=== PATIENT | female | born 1985 | race Caucasian/White ===

== ENCOUNTER 2024-05-19 10:24 | Outpatient (CLI) | payer OTHER, SELFPAY ==
[2024-05-21 06:42] LABS: HPV Source Cervical; HPV, High Risk by TMA Not Detected
== END 2024-05-19 10:25 | disposition home or self-care (01) ==
PROVIDERS: Visit Provider Physician Assistant
DX: Z01.419 Encounter for gynecological examination (general) (routine) without abnormal findings (principal); Z12.4 Encounter for screening for malignant neoplasm of cervix; Z13.6 Encounter for screening for cardiovascular disorders; Z13.1 Encounter for screening for diabetes mellitus; Z11.51 Encounter for screening for human papillomavirus (HPV)
CPT/HCPCS: 80061; 87624; 87625; 88141; 88142

== ENCOUNTER 2025-03-22 06:03 | Outpatient (CLI) | payer OTHER, SELFPAY ==
[2025-03-22] VITALS (16 sets, daily range): BP systolic 118–135; BP diastolic 58–71; PULSE 75–95; RESP 16–18; TEMP 36.9–37.1; O2SAT 98–100
--- NOTE | 2025-03-22 06:22 | CRLHL7_ITS ---
For Patients: As a result of the Century Cures Act, medical imaging exams and procedure reports are released immediately into your electronic medical record. You may view this report before your referring provider. If you have questions, please contact your health care provider. INDICATION: Bleeding and cramping TECHNIQUE: Limited transabdominal OB ultrasound to evaluate for placental abruption. Grayscale images of the placenta were obtained. Limited views of the fetus to evaluate for heart rate and positioning. COMPARISON: Outside images not available for comparison. FINDINGS: heart rate: 131 beats per minute position: Cephalic. Placenta: Posterior without evidence of abruption. Cervix was not evaluated to evaluate for placental edge to cervix distance. Amniotic fluid: Single deepest pocket measuring 4.5 centimeters. IMPRESSION: Sanchez intrauterine in cephalic presentation. Cardiac activity is present. Posterior placenta without evidence of abruption. Normal amniotic fluid. Dictated by Magalis Garcia MD @ 03/22/2025 7:12:04 AM (Electronically Signed)
[2025-03-22 06:37] LABS: Hematocrit 36.8 % (33.0-51.0); Hemoglobin* 12.4 gm/dL (12.0-16.0); Immature Granulocytes Abs Auto 0.06 K/uL (0.00-0.30); Immature Granulocytes Pct Auto 0.7 %; Lymphocytes Absolute Auto 1.50 K/uL (0.90-2.90); Mean Corpuscular HGB Conc 34 gm/dL (32-36); Mean Corpuscular Hemoglobin 35 pg (26-34); Mean Corpuscular Volume 103 fL (80-100); RDW Coefficient of Variation % 12.7 % (11.5-15.5); Red Blood Count 3.58 m/uL (4.00-5.20); Slide Review Reflex No; White Blood Count* 8.03 K/uL (4.50-11.00)
--- NOTE | 2025-03-22 06:41 | P.OBLDTN_ITS ---
OB - Triage/Final Diagnosis Visit Information Time Seen by Provider: 06:30 Date Seen: 03/22/25 Date of evaluation: 03/22/25 Narrative: The patient is a 39 year old 1 para 0 at 29 0/7 weeks gestation by transfer date, who presents with acute vaginal bleeding. KARIS 06/07/25. Awoke this morning with bright red bleeding from the vagina, filled the toilet bowl when she went to the bathroom. Now is feeling some mild low abdominal cramping. She denies recent trauma, recent sexual intercourse, signs symptoms vaginal or urinary tract infection, or any prior bleeding during this . She has been seeing a mid teacher for care, and had just recently passed her diabetes screen and had a normal hemoglobin level of 13.1. Her risk factors include advanced maternal age and IVF . She reportedly had a normal mid trimester ultrasound with a posterior placenta, without evidence of previa. The patient's blood type is reportedly O-positive. Labs were ordered: CBC, fibrinogen. Formal ultrasound ordered to assess amniotic fluid volume, position, and placenta for position and any evidence of abruption. The patient was signed out to Dr. Field for further evaluation at change of shift. Evaluation Cervical dilation (cm): 0 Laboratory results: Laboratory Tests 03/22/25 Range/Units 06:30 WBC 8.03 (4.50-11.00) K/uL RBC 3.58 L (4.00-5.20) m/uL Hgb 12.4 (12.0-16.0) gm/dL Hct 36.8 (33.0-51.0) % MCV 103 H (80-100) fL MCH 35 H (26-34) pg MCHC 34 (32-36) gm/dL RDW Coeff of Kenneth 12.7 (11.5-15.5) % Plt Count 218 (140-440) K/uL Neut % (Auto) 71.9 (42.0-72.0) % Lymph % (Auto) 19.2 L (20-44) % [place] % (Auto) 7.1 (0.0-11.0) % Eos % (Auto) 1.0 (0.0-7.0) % Baso % (Auto) 0.1 (0.0-3.0) % Neut # (Auto) 5.77 (1.7-7.0) K/uL Lymph # (Auto) 1.50 (0.90-2.90) K/uL [place] # (Auto) 0.60 (0.00-0.90) K/UL Eos # (Auto) 0.08 (0.00-0.50) K/uL Baso # (Auto) 0.01 (0.00-0.30) K/uL Abs Immat Gran (auto) 0.06 (0.00-0.30) K/uL Imm/Tot Granulo (auto) 0.7 % Fibrinogen Pending Vital signs: Vital Signs - 24 hr 03/22/25 06:08 03/22/25 06:13 03/22/25 06:18 Pulse Oximetry 100 99 99 03/22/25 06:23 03/22/25 06:28 Pulse Oximetry 98 98 Comments: General appearance: Alert, cooperative white female in no acute distress, but very anxious. Abdomen: Soft, gravid, nontender. Fundal height consistent with dates. Fetus is in a vertex presentation by Abdulaziz's. : Sterile speculum exam was performed. There was about a tsp of thick bright red blood in the vaginal vault. The speculum was removed an emptied and then reinserted into the vagina. The cervix appeared to be long and closed visually, and there was no active hemorrhage from the cervical os. No evidence of cervical or vaginal polyps. A digital cervical exam was performed which revealed the cervix was long and closed. Fetus (Single) Heart Rate Baseline: 145 Retirement Variability: Moderate (6-25) Monitor Accelerations: Present (10x10) Monitor Decelerations: None Final Diagnosis (1) Vaginal bleeding in : Status: Acute Problem details: 29 weeks Total Time Spent Total Time Spent: 45 minutes
[2025-03-22 07:55] LABS: Appearance Urine Clear (Clear)
[2025-03-22 11:07] LABS: Amnisure Rom* POSITIVE
[2025-03-22 12:02] LABS: Bacterial Vaginosis* Negative (Negative); Candida glab/krus NOT DETECTED (No Detected)
[2025-03-22] MEDS: LACTATED RINGERS 1000 ML 1,000 ML 500 ML IV (15:45)
--- NOTE | 2025-03-22 19:02 | W.PM.OBO ---
OB Outpatient HPI History of Present Illness Date Seen: 03/22/25 History of Present Illness: 39 year old at 29 0/7 weeks gestation by IVF transfer date, KARIS 06/07/25 , presents with vaginal bleeding. Patient was seen this am by my partner Dr. Nuñez please refer to this note for additional details. In summary patient woke up this morning and went to urinate and noticed blood in the basin, described as light pink and more bright red after wiping. Called in and decided to come in for evaluation. Dr. Nuñez completed a speculum exam this morning after confirming with patient that her placenta was posterior and saw a small amount of blood in the posterior fornix, no pooling, no active bleeding. Digital check completed and cervix was found closed and thick. She had ordered an OB US and amniotic fluid was noted to be normal, placenta was described as normal as well. Labs collected to evaluated fibrinogen and hemoglobin/platelets. Upon re evaluation by me this morning, NST and patient complaining of more frequent tightening and after discussion I recommended continued observation to rule out another episode of bleeding, watery discharge etc... I completed a repeat speculum exam at around 10:30am today cervix found very friable, no bleeding noted from internal cervical os, moderate amount of yellowish, naranjo vaginal discharge mixed with bloody discharge. AmniSure collected and found positive, fern test collected as well found negative, vaginitis panel negative. Patient denies history of abnormal vaginal discharge, significant pelvic pain or frequent contractions, no dysuria, urgency, no constipation no diarrhea, no fever, no chills. Baby moving naturally: Yes Bleeding: Yes Contractions: Yes Leaking fluid: No Discharge: No Heartburn: No Back pain: No Other comments: care review of records: care in [facility] by Executive Manager Austin Mercer- previously planning a home . Evidence of 5 care appointment so far this . She has been utilizing a low does aspirin due to AMA for prevention of hypertension if disorders of , she had been utilizing vaginal progesterone 200 mg nightly until about 2 weeks prior to current visit, utilizing Levothyroxine 150mcg due to history of hypothyroidism. care visits blood pressures 12, 16, 21, 27 weeks respectively: 137/78, 127/83, 131/76, 118/79. During IVF process patient has documented blood pressures in the 140s systolics. 10/14/2024: Ultrasound crown to rump length consistent with 6 weeks 2 days, heart rate 118 beats per minute. KARIS: 06/07/2025. Small subchorionic hemorrhage measuring 7 x 7 mm. Left adnexal simple cyst measuring 15 mm. 10/28/2024: Completed due to first trimester bleeding: Single living intrauterine at 8 weeks 3 days, cardiac activity is detected at a rate of 171 beats per minute. Tiny subchorionic hematoma measures 8 x 4 x 3 mm. 01/24/2025: Anatomy ultrasound: Single fetus is present in cephalic position, there is good movement, with cardiac activity identified at 144 beats per minute. The placenta is implanted, with no evidence of placenta previa or abruption at this time. There is a normal amount of amniotic fluid present. Cervical length 45 mm and closed. BPD: Consistent with 21 weeks and 3 days, HC: 21 weeks 3 days, abdominal circumference: 22 weeks 6 days, femur length consistent with 20 weeks and 3 days. No abnormalities are identified. 11/07/2024: TSH: 0.39, low 11/29/2024: Hemoglobin: 13.6, platelets [id number]. Blood type and group O positive, RPR nonreactive, hepatitis-B surface antigen nonreactive, rubella immune, TSH: 0.09 (L), free T4: 4.0 (H), total T4: 16.8 (H). CMP: BUN: 8, creatinine: 0.86, AST: 14, ALT: 22. Hemoglobin A1c: 5.1. Vitamin-D: 27 low. 01/27/2025: TSH: 0.74 within normal range. 02/28/2025: Hemoglobin 12.3, platelets [id number], TSH: 1.98 WNL. 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) Hemorrhoids ?K64.9 - Unspecified hemorrhoids (ICD-10) Surgical History History of thyroidectomy, subtotal ?E89.0 - Postprocedural hypothyroidism (ICD-10) History of right ankle joint replacement (2003) ?Z96.661 - Presence of right artificial ankle joint (ICD-10) History of appendectomy (2001) ?Z90.49 - Acquired absence of other specified parts of digestive tract (ICD-10) Family History Paternal Grandmother Thyroid disease Diabetes Heart disease Leukemia Maternal Grandfather Heart disease Lung cancer COPD (chronic obstructive pulmonary disease) Maternal Grandmother Heart disease Skin cancer Social History Narrative: RN Nonsmoker Occasional alcohol use What is your current living situation?: I presently have a place to live Problems where you live: no known problems In the past 12 months, utilities in danger of being shut off: no In past 12 months, lack of transportation kept you from medical appts, meetings, work, or getting things needed for daily living: no In the past 12 mos, have been you worried that your food would run out before you had money to buy more?: never true In the past 12 mos, the food you bought just didn't last and you didn't have money to buy more?: never true Smoking Status: Never smoker How often does anyone, including family, friends and others, physically hurt you: never How often does anyone, including family, friends and others, insult or talk down to you: never How often does anyone, including family, friends and others, threaten you with harm: never How often does anyone, including family, friends and others, scream or curse at you: never History History 1 Elective abortions Para 0 Spontaneous abortions Hx # Term Pregnancies Ectopic pregnancies Hx # Pregnancies Multiple births Number of Living Children 0 OB - H&P: Exam Physical Exam Vital signs: Temp Pulse Resp BP Pulse Ox 98.7 F 78 16 119/58 L 100 03/22/25 16:33 03/22/25 16:34 03/22/25 16:33 03/22/25 16:34 03/22/25 13:17 Narrative: Sterile speculum exam completed at around 10:30am:cervix found very friable, no bleeding noted from internal cervical os- or abnormal discharge, moderate amount of yellowish, naranjo vaginal discharge mixed with bloody mucous. Digital exam completed as well and cervix found posterior, soft, closed. AmniSure collected and found positive, fern test collected as well found negative, vaginitis panel negative. Labs Labs Laboratory Tests 03/22/25 03/22/25 03/22/25 Range/Units 10:55 07:40 06:30 WBC 8.03 (4.50-11.00) K/uL RBC 3.58 L (4.00-5.20) m/uL Hgb 12.4 (12.0-16.0) gm/dL Hct 36.8 (33.0-51.0) % MCV 103 H (80-100) fL MCH 35 H (26-34) pg MCHC 34 (32-36) gm/dL RDW Coeff of Kenneth 12.7 (11.5-15.5) % Plt Count 218 (140-440) K/uL Neut % (Auto) 71.9 (42.0-72.0) % Lymph % (Auto) 19.2 L (20-44) % [place] % (Auto) 7.1 (0.0-11.0) % Eos % (Auto) 1.0 (0.0-7.0) % Baso % (Auto) 0.1 (0.0-3.0) % Neut # (Auto) 5.77 (1.7-7.0) K/uL Lymph # (Auto) 1.50 (0.90-2.90) K/uL [place] # (Auto) 0.60 (0.00-0.90) K/UL Eos # (Auto) 0.08 (0.00-0.50) K/uL Baso # (Auto) 0.01 (0.00-0.30) K/uL Abs Immat Gran (auto) 0.06 (0.00-0.30) K/uL Imm/Tot Granulo (auto) 0.7 % Fibrinogen 480 H (200-450) mg/dL Urine Color Yellow (Yellow) Urine Appearance Clear (Clear) Urine pH 6.0 (5.0-8.5) Ur Specific [place] 1.025 (1.000-1.030) Urine Protein Negative (Negative) Urine Glucose (UA) Negative (Negative) Urine Ketones Negative (Negative) Urine Blood 2+ A (Negative) Urine Nitrite Negative (Negative) Urine Bilirubin Negative (Negative) Urine Urobilinogen 0.2 (0.2-1.0) Ur Leukocyte Esterase Negative (Negative) Urine RBC 0-2 (0-2) Urine WBC 0-2 (0-5) Ur Squamous Epith Cells Moderate A (None-Few) Urine Bacteria Moderate A (None) Membrane Rupture POSITIVE Vaginal Bacterial Vaginosis Negative (Negative) Vaginal Mirna species NOT DETECTED (No Detected) Vag C. glabrata/krusei NOT DETECTED (No Detected) Vag T. vaginalis NOT DETECTED (No Detected) Assessment and Plan Assessment and plan (1) Vaginal bleeding in : Problem comment: 29 weeks Status: Acute Assessment and Plan: After my exam today patient stood up and had another episode of bleeding similar to the first one described this morning. I had just checked her. She did started to experience a bit more cramping and recommendation was given to continue observation overnight and repeat evaluation early tomorrow morning. I did talk to patient about possibly considering a course of steroids as we do not have yet an explanation for her bleeding and she is at a very young gestational age. Patient wanted to wait further evaluation to make this decision since her cervix had not change she would prefer to wait and see if she really meets criteria for this intervention at this moment. Bleeding has not repeated since this morning. Prolonged monitoring has been found reactive with episodes of uterine contractions that have been regular and other times much more sporadic. Plan 1. Repeat OB US in am. Complete growth, placenta re evaluation to include distance from internal cervical os, cervical length, re evaluation of amniotic fluid. 2. Repeat labs, CBC and fibrinogen in am. 3. Repeat sterile speculum exam and consider repeating: AmniSure, fern, vaginitis testing, FFN, etc... 4. Patient has talked with her career services coordinator and believes she will be transferring her care to us, I did recommend MFM evaluation and completion of level 2 US if she is discharged to continue routine care. 5. If there is any significant clinical change overnight we have discussed completing re evaluation sooner.
[2025-03-23 05:29] VITALS: BP 115/66; PULSE 83; RESP 18; TEMP 37.2
[2025-03-23 05:35] LABS: Hematocrit 37.1 % (33.0-51.0); Hemoglobin* 12.2 gm/dL (12.0-16.0); Immature Granulocytes Abs Auto 0.09 K/uL (0.00-0.30); Immature Granulocytes Pct Auto 0.9 %; Mean Corpuscular HGB Conc 33 gm/dL (32-36); Mean Corpuscular Hemoglobin 34 pg (26-34); Mean Corpuscular Volume 104 fL (80-100); RDW Coefficient of Variation % 12.8 % (11.5-15.5); Red Blood Count 3.56 m/uL (4.00-5.20); White Blood Count* 9.72 K/uL (4.50-11.00)
[2025-03-23 05:39] LABS: Lymphocytes Absolute Auto 1.90 K/uL (0.90-2.90)
[2025-03-23 05:40] LABS: Slide Review Reflex No
--- NOTE | 2025-03-23 06:00 | CRLHL7_ITS ---
For Patients: As a result of the Century Cures Act, medical imaging exams and procedure reports are released immediately into your electronic medical record. You may view this report before your referring provider. If you have questions, please contact your health care provider. Indication: Vaginal bleeding Technique: Sonography of the gravid uterus was performed. The examination is limited to only about which is discussed below Comparison: A prior study dated 03/22/2025 Findings: There is a single living intrauterine . The cervix measures 3 centimeters and is closed. This is measured transvaginally. The fetus is vertex. The single deepest pocket is 5.6 centimeters heart rate is 142 beats per minute which is normal. The placenta was studied and there is no evidence of abruption. No abnormal fluid collection identified behind or at the margin of the placenta. The placenta ends approximately 7.9 centimeters from the os. Anatomy was obtained only for biometry Biometry is as follows: BPD is 7.8 centimeters corresponding to 31 weeks and 1 day HC is 29.4 centimeters corresponds to 32 weeks and 3 days AC 27.9 centimeters corresponds to 32 weeks and 0 days Femur length is 5.6 centimeters corresponding to 29 weeks and 2 days HC to AC ratio is 1.05 which is normal age by ultrasound is 31 weeks and 2 days. Estimated dated delivery by current ultrasound is 05/23/2025. Estimated weight is 1700 grams which is at the 95th percentile. A prominent vessel is noted by Doppler at the cervical os. This may be due to the current position of the cord though a Vasa previa is not excluded. This should be more extensively studied prior to any contemplated vaginal delivery. I discussed the above findings with Jenn Charles At 6:50 a.m. on March 23, 2025 Impression: 1. Single live intrauterine that is vertex. Normal fluid volume. Normal heart rate. 2. Cervical length is 3 centimeters. The os is closed. 3. No abruption. No abnormal fluid collections identified behind or at the margin of the placenta. 4. Biometry as above. Current weight is at the 95th percentile. 5. A prominent vessel is noted by Doppler at the cervical os. This may be due to the current position of the cord though a Vasa previa is not excluded. This should be more extensively started prior to any contemplated vaginal delivery. Dictated by Jay Jay Joy MD @ 03/23/2025 6:51:42 AM (Electronically Signed)
[2025-03-23] MEDS: BETAMETHASONE SOD PHOS/ACETATE 6 MG/ML ML 12 MG IM (07:47)
--- NOTE | 2025-03-23 08:55 | P.OBT_ITS ---
History of Present Illness History of Present Illness Time Seen by Provider: 08:56 History of Present Illness: Linda is a 39yo at 29w1d GA by embryo transfer date who presented with vaginal bleeding on 03/22/25. is complicated by IVF gestation and AMA. Patient has received all care through an outside center ([place]). She is dated by embryo transfer date, affirmed by 8 week and anatomy US. Available records from [facility] limited in terms of anatomy and placental location, but described as implanted and no previa. Patient presented following a mahamed vaginal bleeding episode yesterday morning. She got up to use restroom, noted toilet water was pink and she had about a quarter sized mahamed blood collection on toilet paper. On arrival, she was evaluated by different provider who completed speculum exam and cervical check - approximately 1 tablespoon of blood in vaginal vault, no active bleeding noted. Cervix was closed on digital exam. TAUS performed with no evidence of abrutpion, no TVUS performed. NST was reassuring for GA, normal labs with Hgb of 12.4. A different provider then performed a speculum exam again, where no pooling was noted - swab negative for ferning. Vaginitis panel completed, found to be negative. Patient did have further bleeding after this exam, last mahamed bleeding event at 1300. This saturated about a half dollar size of a pad, red to maroon in color. Patient notes that she has had some intermittent cramping contractions, about every 2-3 minutes in last 24 hours. She notes this has not increased in severity. She denies leaking of fluids. Endorses active movement. She is otherwise in her normal state of health. Transvaginal ultrasound was performed this morning, with the goal of cervical length and placental assessment. Cervix was noted to be 3.1 cm in length, closed. Posterior placenta noted, measured 7.9 cm between placental edge and cervix. There is an abnormal vessel noted overlying the cervix however, with venous Doppler flow appreciated. Differential diagnosis included funic presentation versus potential Vasa previa. I presented to the bedside this morning, reviewed Linda's course in detail. She affirms she has not had any mahamed bleeding since yesterday at 1300. She did pass brown old blood this morning, treating a half dollar amount of 2 pads. She continues to have crampy contractions about every 5 minutes. Remainder as above. 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) Hemorrhoids ?K64.9 - Unspecified hemorrhoids (ICD-10) Surgical History History of thyroidectomy, subtotal ?E89.0 - Postprocedural hypothyroidism (ICD-10) History of right ankle joint replacement (2003) ?Z96.661 - Presence of right artificial ankle joint (ICD-10) History of appendectomy (2001) ?Z90.49 - Acquired absence of other specified parts of digestive tract (ICD- 10) Family History Paternal Grandmother Thyroid disease Diabetes Heart disease Leukemia Maternal Grandfather Heart disease Lung cancer COPD (chronic obstructive pulmonary disease) Maternal Grandmother Heart disease Skin cancer Social History Narrative: RN Nonsmoker Occasional alcohol use What is your current living situation?: I presently have a place to live Problems where you live: no known problems In the past 12 months, utilities in danger of being shut off: no In past 12 months, lack of transportation kept you from medical appts, meetings, work, or getting things needed for daily living: no In the past 12 mos, have been you worried that your food would run out before you had money to buy more?: never true In the past 12 mos, the food you bought just didn't last and you didn't have money to buy more?: never true Smoking Status: Never smoker How often does anyone, including family, friends and others, physically hurt you : never How often does anyone, including family, friends and others, insult or talk down to you: never How often does anyone, including family, friends and others, threaten you with harm: never How often does anyone, including family, friends and others, scream or curse at you: never History History 1 Elective abortions Para 0 Spontaneous abortions Hx # Term Pregnancies Ectopic pregnancies Hx # Pregnancies Multiple births Number of Living Children 0 OB - H&P: Exam Physical Exam Vital signs: Temp Pulse Resp BP Pulse Ox 98.9 F 83 18 115/66 100 03/23/25 05:03/23/25 05:03/23/25 05:03/23/25 05:03/22/25 13:17 Narrative: General: Alert and oriented, no acute distress Psych: Appropriate mood and affect Abdomen: Soft, nontender nondistended NST: Reassuring for gestational age, baseline of 130 beats per minute, moderate variability, 10 x 10 accelerations seen, no decelerations Rafael Hernandez: No apparent decelerations. EFW 1700 g, 95th percentile for GA. Posterior placenta, 7.9 cm between placental edge and cervical os. Prominent vessel by Doppler at cervical os. MVP 5.6 cm. Cervical length 3 cm, closed. Results Labs Laboratory Tests 03/23/25 03/22/25 03/22/25 Range/Units 05:25 10:55 07:40 WBC 9.72 (4.50-11.00) K/uL RBC 3.56 L (4.00-5.20) m/uL Hgb 12.2 (12.0-16.0) gm/dL Hct 37.1 (33.0-51.0) % MCV 104 H (80-100) fL MCH 34 (26-34) pg MCHC 33 (32-36) gm/dL RDW Coeff of Kenneth 12.8 (11.5-15.5) % Plt Count 213 (140-440) K/uL Neut % (Auto) 71.7 (42.0-72.0) % Lymph % (Auto) 19.2 L (20-44) % Wheeler % (Auto) 6.8 (0.0-11.0) % Eos % (Auto) 1.2 (0.0-7.0) % Baso % (Auto) 0.2 (0.0-3.0) % Neut # (Auto) 6.96 (1.7-7.0) K/uL Lymph # (Auto) 1.90 (0.90-2.90) K/uL Wheeler # (Auto) 0.70 (0.00-0.90) K/UL Eos # (Auto) 0.12 (0.00-0.50) K/uL Baso # (Auto) 0.02 (0.00-0.30) K/uL Abs Immat Gran (auto) 0.09 (0.00-0.30) K/uL Imm/Tot Granulo (auto) 0.9 % APTT 25 (23-33) Seconds Fibrinogen 448 (200-450) mg/dL Urine Color Yellow (Yellow) Urine Appearance Clear (Clear) Urine pH 6.0 (5.0-8.5) Ur Specific [place] 1.025 (1.000-1.030) Urine Protein Negative (Negative) Urine Glucose (UA) Negative (Negative) Urine Ketones Negative (Negative) Urine Blood 2+ A (Negative) Urine Nitrite Negative (Negative) Urine Bilirubin Negative (Negative) Urine Urobilinogen 0.2 (0.2-1.0) Ur Leukocyte Esterase Negative (Negative) Urine RBC 0-2 (0-2) Urine WBC 0-2 (0-5) Ur Squamous Epith Cells Moderate A (None-Few) Urine Bacteria Moderate A (None) Membrane Rupture POSITIVE Vaginal Bacterial Vaginosis Negative (Negative) Vaginal Mirna species NOT DETECTED (No Detected) Vag C. glabrata/krusei NOT DETECTED (No Detected) Vag T. vaginalis NOT DETECTED (No Detected) 03/22/25 Range/Units 06:30 WBC 8.03 (4.50-11.00) K/uL RBC 3.58 L (4.00-5.20) m/uL Hgb 12.4 (12.0-16.0) gm/dL Hct 36.8 (33.0-51.0) % MCV 103 H (80-100) fL MCH 35 H (26-34) pg MCHC 34 (32-36) gm/dL RDW Coeff of Kenneth 12.7 (11.5-15.5) % Plt Count 218 (140-440) K/uL Neut % (Auto) 71.9 (42.0-72.0) % Lymph % (Auto) 19.2 L (20-44) % Wheeler % (Auto) 7.1 (0.0-11.0) % Eos % (Auto) 1.0 (0.0-7.0) % Baso % (Auto) 0.1 (0.0-3.0) % Neut # (Auto) 5.77 (1.7-7.0) K/uL Lymph # (Auto) 1.50 (0.90-2.90) K/uL Wheeler # (Auto) 0.60 (0.00-0.90) K/UL Eos # (Auto) 0.08 (0.00-0.50) K/uL Baso # (Auto) 0.01 (0.00-0.30) K/uL Abs Immat Gran (auto) 0.06 (0.00-0.30) K/uL Imm/Tot Granulo (auto) 0.7 % APTT (23-33) Seconds Fibrinogen 480 H (200-450) mg/dL Urine Color (Yellow) Urine Appearance (Clear) Urine pH (5.0-8.5) Ur Specific [place] (1.000-1.030) Urine Protein (Negative) Urine Glucose (UA) (Negative) Urine Ketones (Negative) Urine Blood (Negative) Urine Nitrite (Negative) Urine Bilirubin (Negative) Urine Urobilinogen (0.2-1.0) Ur Leukocyte Esterase (Negative) Urine RBC (0-2) Urine WBC (0-5) Ur Squamous Epith Cells (None-Few) Urine Bacteria (None) Membrane Rupture Vaginal Bacterial Vaginosis (Negative) Vaginal Mirna species (No Detected) Vag C. glabrata/krusei (No Detected) Vag T. vaginalis (No Detected) Assessment and Plan Assessment and plan (1) Vaginal bleeding in : Problem comment: 29 weeks Status: Acute Plan Linda is a 39yo at 29w1d GA by embryo transfer date who presented with vaginal bleeding on 03/22/25. is complicated by IVF gestation and AMA. Patient has received all care through an outside center ([place]). Patient presented with mahamed vaginal bleeding yesterday, last was 03/22 at 1:00 p.m. This was following a speculum exam and cervical exam. No clear etiology was identified for her bleeding yesterday, including negative vaginitis panel, reassuring transabdominal ultrasound and NST against abruption, and no cervical change across to exams. Transvaginal ultrasound was performed this morning, cervical length of 3.0 cm with closed os. However, placental edge is described as posterior and 7.9 cm from the cervical os but there is an abnormal vessel overlying the cervix. Doppler flow was applied, appears venous. Patient previously declined betamethasone yesterday. I presented the bedside and strongly recommend she reconsider the role of betamethasone for decreasing complications of prematurity. Explained that her etiology for bleeding is still uncertain, however this abnormal vessel could represent pathology such as a vasa previa. I did explain that her bleeding picture and reassuring status would not be consistent with bleeding from a Vasa previa. Nonetheless, a level 2 ultrasound an inpatient observation through at least her steroid window would be indicated. Differential diagnosis includes placental abruption, labor, vasa previa. After discussion, patient provided for consent for betamethasone and transfer of care. BMZ #1 was administered at approximately 0800. GBS swab obtained and sent. Transfer was requested initially accepted to [facility], but patient later requested a different facility due to insurance coverage issues. As such, transfer was requested and accepted to [place], by Dr. Marissa Clay. Magnesium sulfate was recommended for neuroprotection by myself and accepting facility, however patient declined this as she intends to transfer via private vehicle against medical advice. I clearly counseled her that I do not recommend transfer via private vehicle, I would recommend transferred by S ambulance. Explained I am not able to administer magnesium sulfate for neuro protection if she declines ambulance. Patient ultimately declines magnesium sulfate for neuroprotection and declines transfer via ambulance. Against medical advice paperwork was reviewed and signed by patient, with myself as witness. Bedside RN was present for counseling regarding my recommendation for transfer via ambulance and for magnesium sulfate. Recommend emergent presentation to [facility]. Dr. Marissa Clay is still accepting MD, aware patient is presenting via private car despite her and my medical advice. All questions answered.
[2025-03-23 09:25] VITALS: BP 127/79; PULSE 89; RESP 16; TEMP 36.8
[2025-03-24 07:58] LABS: Strep B DNA Probe Negative (Negative)
[2025-03-24 08:18] LABS: Strep B Susceptibility Needed? No
--- NOTE | 2025-03-31 10:06 | PC.OBNST ---
NST Note NST Note Start: 03/22/25 06:10 Freq: ONCE Status: Discharge Protocol: Document 03/23/25 12:00 [facility] (Rec: 03/31/25 10:05 [facility] No Response) NST Note 1 Para (# of births) 0 EDC 06/07/25 Gestational Age In 30 Weeks & 2 Days Weeks & Days High Risk Factors Advanced Maternal Age Patient Presented Vaginal bleeding with Complaint(s) of Reactive Yes Appropriate for Yes Gestational Age YULY Mejia RNC Date 03/23/25 Reactive Yes Appropriate for Yes Gestational Age YULY Lopez RN Date 03/23/25 OB NST charge Yes Complete NST Note Yes via Write Note The provider's electronic signature indicates the NST is reactive/appropriate for gestational age. *Note to provider: If an addendum is required, open the patient's chart and click on the note under the Nurse/Allied Health tab.
[2025-04-21 18:06] LABS: Fern Test* Ferning not present
== END 2025-03-23 09:28 | disposition left against medical advice (07) ==
LOC: OB OUT 06:03 → OB 06:03
PROVIDERS: Obstetrics & Gynecology; Visit Provider Obstetrics & Gynecology
DX: O46.93 Antepartum hemorrhage, unspecified, third trimester (principal); O09.513 Supervision of elderly primigravida, third trimester; Z3A.29 29 weeks gestation of pregnancy
CPT/HCPCS: 36415; 59025; 76815; 76816; 76817; 81001; 81003; 81513; 84112; 85025; 85384; 85730; 87081; 87086; 87481; 87653; 87661; G0463; Q0114; J0702; J7120

== ENCOUNTER 2025-05-24 16:18 | Outpatient (CLI) | payer OTHER, SELFPAY ==
[2025-05-24 16:30] VITALS: RESP 16; TEMP 36.8
[2025-05-24 16:32] VITALS: BP 138/94; PULSE 89
[2025-05-24 16:49] VITALS: BP 126/90; PULSE 93
[2025-05-24 16:56] LABS: Amnisure Rom* Negative
--- NOTE | 2025-05-24 17:13 | PC.OBNST ---
NST Note NST Note Start: 05/24/25 16:24 Freq: ONCE Status: Active Protocol: Document 05/24/25 17:05 [facility] (Rec: 05/24/25 17:12 [facility] [id number]) NST Note 1 Para (# of births) 0 EDC 06/07/25 Gestational Age In 38 Weeks & 0 Days Weeks & Days Patient Presented Leaking fluid with Complaint(s) of Reactive Yes Appropriate for Yes Gestational Age RN Crow Lopez RN Date 05/24/25 Reactive Yes Appropriate for Yes Gestational Age YULY Silverio RN Date 05/24/25 OB NST charge Yes Complete NST Note Yes via Write Note The provider's electronic signature indicates the NST is reactive/appropriate for gestational age. *Note to provider: If an addendum is required, open the patient's chart and click on the note under the Nurse/Allied Health tab.
== END 2025-05-24 17:05 | disposition home or self-care (01) ==
LOC: OB OUT 16:18 → OB 16:19
PROVIDERS: Visit Provider Family Medicine
DX: O47.1 False labor at or after 37 completed weeks of gestation (principal); Z3A.38 38 weeks gestation of pregnancy
CPT/HCPCS: 59025; 84112; G0463

== ENCOUNTER 2025-06-05 15:59 | Outpatient (CLI) | payer OTHER, SELFPAY ==
--- NOTE | 2025-06-05 17:56 | W.PM.LAC.MC ---
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) Hemorrhoids ?K64.9 - Unspecified hemorrhoids (ICD-10) Work Plans: 20 week leave Delivery Information Delivery type: Primary C/S; Non-Labored Gestational Age: 39 Gestational Weight For Age: LGA Weight: 4.649 kg Discharge Weight: 4.309 kg Percentage weight loss: 7.4 Baby's Information Baby's Age at Visit: 5 Baby's Provider or Clinic: [facility] Jaundice: Yes Past Experience Past Experience: No Current Frequency of Day Feedings: every 3 hrs Frequency of Night Feedings: one 4 hr stretch, then q3 hrs Both Breasts: Yes Suck: strong Latch: with shield Length of Time: 20-30 min on L; 5-10 on R Goals: no defined plan yet Pumping Pumping: Yes Quantity Pumped: 15-30 ml Supplementing EBM Supplement: Yes Formula Supplement: No Baby Elimination Number of Wet Diapers a Day: 4 so far today Number of BM a Day: 2 today;yellow an dseedy Breast/Nipple Condition Breast Information: Breasts are symmetrical with rounded lower quadrants, intramammary distance is less than 1.5 inches. No erythema. Nipples are supple, everted prior to feeding. LEFT nipple flat, everts in shield or pump RIGHT nipple inverted, starting to deion after pumping Breast Shape: Round Engorgement: No Sore Nipples: Yes (slight) Baby Assessment Skin: Yellow (to chest) Tongue/frenulum: Restricted mid-range Palate: Average Lips: Relaxed and Symmetrical Jaw Alignment: Symmetrical Mucosa: [place], moist Onsite Observation Pre-Feed weight: 4.35 kg Post-Feed weight: 4.37 kg Milk Transferred (mL): 20 Position: Cross cradle and Football Attachment/latch-on achieved: With nipple shield (on LEFT initially, finished without shield; shield on RIGHT for entire feeding) Suck pattern: Extended suck phase Swallow: Occasionally Behavior following feed: Alert, content Pre-Nursing Left Nipple: Within Normal Limits Pre-Nursing Right Nipple: Within Normal Limits Post-Nursing Left Nipple: Within Normal Limits Post-Nursing Right Nipple: Within Normal Limits Assessments/Interventions Assessments/Interventions: Cherrye latched to mom's LEFT breast, latched first with shield for 2 minutes; then mom able to remove shield and relatch baby; worked on breast sandwich to get deeper latch without shield and stayed nursing for 15 minutes. Transferred 16 ml of milk Irving then latched to mom's RIGHT breast, latched with shield only and nursed for another 10 minutes. Transferred 4 ml of milk. Mom then pumped; she got 15 ml from her LEFT breast after 20 min of pumping. transitional milk noted She got barely drops from her RIGHT breast, but she is able to hand express some milk Irving took 50 ml of EBM from a bottle with strong coordinated suck Discussed risk of delayed lactogenesis with as well as history of infertility and milk supply. Feeding plan developed to support baby's growth and milk supply development: Worked with mom/taught asymmetrical latch technique for a wide, deep latch and increased milk transfer Reviewed in both football and cross cradle hold Use nipple shield as needed; given shape of nipple of RIGHT breast, he may be more successful latching to the breast in the football hold. Discussed normals of ; milk coming in, regulation of supply, use of pump to help build supply until feels more fully coming in Discussed feeding each a no more than 20 minutes, watch for active swallowing to maximize energy at the breast since also needing to supplement Pump after feedings as able to stimulate milk supply and to have EBM to supplement baby. Discussed option of galactogogues to support milk coming in given delayed response and history of infertility Food, fluids, and rest also reviewed for mama Education provided: Early feeding cues to maximize timing of latching, Asymmetric latch technique for wide/deep latch to increase milk, Transfer for baby and increase comfort for mom, Supply/demand nature of milk supply, Need for frequent stimulation/milk removal, Sore nipple treatment options, Alternative feeding methods (SNS, cup, finger feeding, bottling), Use of nipple shield, Pumping for milk management and Milk collection, storage Follow-Up Suggested follow up: Appointment as needed Time Spent Time spent with patient (min): 90 Meds Home Medications and Allergies Home Medications ?Medication ?Instructions ?Recorded ?Confirmed ?Type levothyroxine 150 mcg tablet 150 mcg PO DAILY 05/19/24 03/22/25 History sertraline 100 mg tablet 100 mg PO DAILY 05/19/24 03/22/25 History vit no.95-ferrous 1 tab PO DAILY 03/22/25 03/22/25 History fumarate 28 mg-folic acid 800 mcg tablet () Allergies Allergy/AdvReac Type Severity Reaction Status Date / Time No Known Drug Allergies Allergy Verified 05/19/24 10:11
== END 2025-06-05 16:00 | disposition home or self-care (01) ==
LOC: OB LAC 15:59
PROVIDERS: PCP Family Medicine; Visit Provider Family Medicine
DX: Z39.1 Encounter for care and examination of lactating mother (principal)
CPT/HCPCS: G0463

== ENCOUNTER 2025-06-14 14:40 | Outpatient (CLI) | payer OTHER, SELFPAY ==
--- NOTE | 2025-06-14 16:43 | P.LACF_ITS ---
Follow-Up Note: Mom Date of visit Date of visit: 06/14/25 Reason for consultation: Assistance Needed Visit Code: Visit Patient's Information Allergies No Known Drug Allergies Allergy (Verified 05/19/24 10:11) Delivery Information Weight: 4.649 kg Last Weight: 4.196 kg (at clinic yesterday) Baby's Information Baby's name: Reggie Henderson Baby's Age at Visit: 2 weeks Baby's Provider or Clinic: Dr. Maday Gilliland Current Frequency of Day Feedings: q2.5 hrs Frequency of Night Feedings: q3 hrs Both Breasts: No Suck: ok Latch: with shield Length of Time: only doing 10 minutes now due to weight loss Pumping Pumping: Yes Quantity Pumped: 24236 ea pump Supplementing EBM Supplement: Yes (now taking 80 ml ea feeding) Baby Elimination Number of Wet Diapers a Day: ea feeding Number of BM a Day: multiple Breast/Nipple Assessment Breast/Nipple Assessment: Breasts are symmetrical with rounded lower quadrants, intramammary distance is less than 1.5 inches. No erythema. Nipples are supple, everted prior to feeding. Mom gets more milk from her left breast than her right; took until about day 10 to come in. Breast Shape: Round Engorgement: No Maternal Nipple Condition - Left: Short Maternal Nipple Condition - Right: Short Sore Nipples: Yes Onsite Observation Pre-feed weight: 4.408 kg (up 7.5oz from yesterday) Post-Feed weight: 4.428 kg Milk Transferred (mL): 20 Pre-Nursing Left Nipple: Within Normal Limits Pre-Nursing Right Nipple: Within Normal Limits Post-Nursing Left Nipple: Creased/Beveled (without using nipple shield) Post-Nursing Right Nipple: Within Normal Limits Assessments/Interventions Assessments/Interventions: Babe latched to mom's LEFT breast, latched well,nursed for 5 minutes and then less swallows noted, increased some as mom used breast compression; transferred 16 ml Babe then latched to mom's RIGHT breast, latched well and nursed for another 5 minutes. Transferred 0ml Mom relatched baby to left breast without shield and babe transferred another 4 ml Total volume 20 ml Babe then took 70 ml via bottle, took 25 min to get volume in using [employer] bottle Clicking noted on the bottle and suck less strong than expected - unclear if it's the bottle, weak suck or fatigue from trying to gain birthweight Education provided: Asymmetric latch technique for wide/deep latch to increase milk, Transfer for baby and increase comfort for mom, Supply/demand nature of milk supply, Need for frequent stimulation/milk removal, Alternative feeding methods (SNS, cup, finger feeding, bottling) (suggest try Nuk bottle they have at home to see if this help with less fatigue with bottle feeding), Use of nipple shield, Pumping for milk management and Milk collection, storage Handouts Provided: Discussed tongue tie and suck strengthening exercises Refer to Dr. Saravia for posterior tie evaluation given creasing in nipples and inability to latch without shield despite short nipples (not true flat nipples) Discussed continuuing with [id number] schedule. Recommend feed on right side about 3-5 minutes, then left for no more than 10 and use breast compression to help get more milk to baby, then supplement 60-70 ml Ok to pump and bottle with BFng first 2-3 times/day if desired If pump and bottle try for 20 min pumping, can do 15 with other pumps after b reastfeeding Follow-Up Suggested follow up: Appointment as needed Meds Home Medications and Allergies Home Medications ?Medication ?Instructions ?Recorded ?Confirmed ?Type levothyroxine 150 mcg tablet 150 mcg PO DAILY 05/19/24 03/22/25 History sertraline 100 mg tablet 100 mg PO DAILY 05/19/2410/11 History vit no.95-ferrous 1 tab PO DAILY 03/22/2510/11 History fumarate 28 mg-folic acid 800 mcg tablet () Allergies Allergy/AdvReac Type Severity Reaction Status Date / Time No Known Drug Allergies Allergy Verified 05/19/24 10:11
== END 2025-06-14 14:41 | disposition home or self-care (01) ==
LOC: OB LAC 14:41
PROVIDERS: PCP Family Medicine; Visit Provider Obstetrics & Gynecology
DX: Z39.1 Encounter for care and examination of lactating mother (principal)
CPT/HCPCS: G0463

== ENCOUNTER 2025-07-14 12:48 | Outpatient (CLI) | payer OTHER, SELFPAY ==
--- NOTE | 2025-07-14 14:22 | W.PM.LAC.MF ---
Follow-Up Note: Mom Date of visit Date of visit: 07/14/25 Reason for consultation: Assistance Needed Visit Code: Visit (f/u latch/milk transfer after TT release) Patient's Information Allergies No Known Drug Allergies Allergy (Verified 05/19/24 10:11) Delivery Information Delivery type: Vaginal Weight: 4.649 kg Last Weight: 4.408 kg (06/14/25) Baby's Information Baby's name: Reggie Henderson Baby's Age at Visit: 7w 1d Baby's Provider or Clinic: [facility] Current Frequency of Day Feedings: q3 hrs day and night Both Breasts: Yes Suck: better since TT releast on 07/11/25 Latch: deeper, still needs shield occas on the right Length of Time: about 15-20 min on one side Pumping Pumping: Yes Quantity Pumped: 90-260ml total/session Supplementing EBM Supplement: Yes (takes 120 ml when does a bottle feeding) Formula Supplement: No Baby Elimination Number of Wet Diapers a Day: ea feeding Number of BM a Day: 2 larger/day Breast/Nipple Assessment Breast/Nipple Assessment: Breasts are symmetrical with rounded lower quadrants, intramammary distance is less than 1.5 inches. No erythema. Nipples are supple, everted prior to feeding. Breast Shape: Round Engorgement: No Maternal Nipple Condition - Left: Common Nipple Maternal Nipple Condition - Right: Common Nipple Sore Nipples: Yes (slight with more nursing in the last 48 hrs after TT release) Interventions for Sore Nipples: Lansinoh/Nipple Cream Onsite Observation Pre-feed weight: 5.326 kg (up avg of 42 g/day since last visit) Post-Feed weight: 5.43 kg Milk Transferred (mL): 104 Pre-Nursing Left Nipple: Within Normal Limits Pre-Nursing Right Nipple: Within Normal Limits Post-Nursing Left Nipple: Within Normal Limits and Creased/Beveled (slight crease at base of nipple) Post-Nursing Right Nipple: Creased/Beveled (slight crease at base of nipple) Assessments/Interventions Assessments/Interventions: Reggie had a tongue tie release with Dr. Vieira on 07/11/25; the release went well per parents. Reggie is handling the post-release stretches well. Kailey has been nursing him more since his release and is curious how well he is now transferring milk; she typically nurses him every 2.5-3 hrs, usually one side for 15-20 minutes If he takes a bottle, he takes 120ml every 3 hrs; he does spit up some. Karla latched to mom's LEFT breast, latched well with wide open mouth, lips flanged and tongue visible over bottom lip. He stayed nursing for 10 minutes, and then got quite sleepy at the breast despite mom using some breast compression to keep him engaged in feeding. Transferred 42 ml of milk (last feeding he transferred 20 ml total) Suggested mom offer both breasts ea feeding to increase his intake. Karla then latched to mom's RIGHT breast, latched well and did not use the nipple shield as he sometimes does and nursed for another 9 minutes. Transferred 62 ml of milk (last feeding he didn't transfer any milk with the nipple shield on). Total volume transferred: 102 ml; karla was very content after feeding, spit up a little but but both parents state not as much as he usually does. Continue to work on deep latch, expect this will get easier as his tongue heals and moves more rhythmically. Discussed weaning down from bottles slowly as he nurses more strongly. Offer 2 bottles/day (bedtime and nighttime bottles ok) until next check up with Dr. Vieira. Offer both breasts at each feeding, watch for his cues of getting sleepy and less engaged as time to transfer over to other breast If he seems hungry after a BFing, offer 1/2 oz EBM, more if needed to be content. When fully , can back off on pumping; pump 1-2 x/day until certain he is maintaining his weight gain with the shift in feeding plan, Discussed he may shift to more normal feeding: q3 hrs in the AM, q2-3 hrs in the afternoon, some cluster feeding at night; always offer both breasts at each feeding to increase his volume intake. Returns to work, radio time sales supervisor, in September 2025. Will need to continue with bottles some to prepare for daycare. Education provided: Asymmetric latch technique for wide/deep latch to increase milk, Transfer for baby and increase comfort for mom, Supply/demand nature of milk supply, Need for frequent stimulation/milk removal, Sore nipple treatment options, Alternative feeding methods (SNS, cup, finger feeding, bottling), Use of nipple shield (try to decrease useof now that his tongue has more mobility), Pumping for milk management and Milk collection, storage Follow-Up Suggested follow up: Appointment as needed Time Spent Time spent with patient (min): 60 (time spent with kailey, , baby ) Meds Home Medications and Allergies Home Medications ?Medication ?Instructions ?Recorded ?Confirmed ?Type levothyroxine 150 mcg tablet 150 mcg PO DAILY 05/19/24 03/22/25 History sertraline 100 mg tablet 100 mg PO DAILY 05/19/24 03/22/25 History vit no.95-ferrous 1 tab PO DAILY 03/22/25 03/22/25 History fumarate 28 mg-folic acid 800 mcg tablet () Allergies Allergy/AdvReac Type Severity Reaction Status Date / Time No Known Drug Allergies Allergy Verified 05/19/24 10:11
== END 2025-07-14 12:49 | disposition home or self-care (01) ==
LOC: OB LAC 12:49
PROVIDERS: PCP Family Medicine; Visit Provider Obstetrics & Gynecology
DX: Z39.1 Encounter for care and examination of lactating mother (principal)
CPT/HCPCS: G0463